=== PATIENT | female | born 1985 | race Two or more races ===

== ENCOUNTER 2018-06-09 23:25 | Emergency (ER) | payer SELFPAY ==
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
[2018-06-10] VITALS: BP 130/85; PULSE 100; RESP 24; O2SAT 98
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
== END 2018-06-10 00:41 | disposition home or self-care (01) ==
LOC: H.ER 23:25
DX: F10.129 Alcohol abuse with intoxication, unspecified (principal); Z00.8 Encounter for other general examination